=== PATIENT | female | born 1995 | race Caucasian/White ===

== ENCOUNTER 2017-01-12 01:19 | Emergency (ER) | payer BC ==
[~2017-01-12] VITALS: Ht 162.6 cm; Wt 113.6 kg
[~2017-01-12 01:19] MED LIST: CYCL10TA9 PO; DOXY100T2 PO; HYOS0.1281 PO; METR500T PO; OMEP20TA7 PO; ONDA8TAB13 PO; PROM25SU44 RC; TRAM50TA2 PO
[2017-01-12] MEDS ORDERED: NAPR500T3 PO (01:35)
[2017-01-12] MEDS ORDERED: ALBU2.5V4 IH (01:35)
[2017-01-12] MEDS ORDERED: LACTATED RINGERS 1,000 ML IV ONE (01:37)
[2017-01-12] MEDS ORDERED: ONDANSETRON 4 MG/2 ML (SDV) Z0FRAN IVP ONE (01:45)
[2017-01-12 02:03] LABS: BASOPHILS % (AUTO) 0 % (0-10); EOSINOPHILS # (AUTO) 0.2 10^3/uL (0.0-0.3); EOSINOPHILS % (AUTO) 1 % (0-10); LYMPHOCYTES # (AUTO) 1.7 X 10^3 (1.0-4.0); LYMPHOCYTES % (AUTO) 10 % (12-44); MEAN CORPUSCULAR HEMOGLOBIN 28 PG (25-34); MEAN CORPUSCULAR HGB CONC 34 G/DL (32-36); MEAN CORPUSCULAR VOLUME 83 FL (80-99); MEAN PLATELET VOLUME 9.2 FL (7.4-10.4); MONOCYTES % (AUTO) 6 % (0-12); NEUTROPHILS # (AUTO) 14.5 X 10^3 (1.8-7.8); NEUTROPHILS % (AUTO) 83 % (42-75); PLATELET COUNT 365 10^3/uL (130-400); RED BLOOD COUNT 5.05 10^6/uL (4.35-5.85); RED CELL DISTRIBUTION WIDTH 13.9 % (10.0-14.5); WHITE BLOOD COUNT 17.5 10^3/uL (4.3-11.0)
[2017-01-12 02:10] LABS: ALANINE AMINOTRANSFERASE 33 U/L (0-55); ALBUMIN 4.1 G/DL (3.2-4.5); AMYLASE 43 U/L (25-125); ANION GAP 13 MMOL/L (5-14); ASPARTATE AMINO TRANSFERASE 20 U/L (5-34); BILIRUBIN,TOTAL 0.4 MG/DL (0.1-1.0); BLOOD UREA NITROGEN 12 MG/DL (7-18); BUN/CREATININE RATIO 14; CALCIUM 9.1 MG/DL (8.5-10.1); CARBON DIOXIDE 21 MMOL/L (21-32); CHLORIDE 106 MMOL/L (98-107); CREATININE SERUM 0.83 MG/DL (0.60-1.30); GFR ESTIMATED > 60; GLUCOSE 129 MG/DL (70-105); LIPASE 17 U/L (8-78); POTASSIUM 4.3 MMOL/L (3.6-5.0); SODIUM 140 MMOL/L (135-145)
[2017-01-12 02:27] LABS: BAND NEUTROPHILS 5 %; BASOPHILS % (MANUAL) 0 %; EOSINOPHILS % (MANUAL) 1 %; LYMPHOCYTES % (MANUAL) 19 %; NEUTROPHILS % (MANUAL) 72 %
[2017-01-12] MEDS ORDERED: NS 100 ML (IVPB) BAG IV ONE (03:15)
[2017-01-12] MEDS ORDERED: IOHEXOL 350 MG/ML 100 ML (OMNIPAQUE 350) VIAL IV ONE (03:15)
[2017-01-12 03:40] LABS: BILIRUBIN,URINE NEGATIVE (NEGATIVE); KETONES,URINE NEGATIVE (NEGATIVE); LEUKOCYTE ESTERASE ,URINE NEGATIVE (NEGATIVE); NITRITE,URINE NEGATIVE (NEGATIVE); PH,URINE 8 (5-9); PROTEIN,URINE NEGATIVE (NEGATIVE); UROBILINOGEN,URINE NORMAL (NORMAL)
--- NOTE | 2017-01-12 04:02 | ED GI ---
General Chief Complaint: Abdominal/GI Problems Stated Complaint: VOMITING,ABD PAIN Nursing Triage Note: Pt c/o LUQ abd pain and nausea/vomiting since 2199. Sepsis Screen: No Definite Risk Source of Information: Patient History of Present Illness Time Seen By Provider: 01:30 Initial Comments PT ARRIVES VIA POV FROM HOME C/O NAUSEA AND VOMITING AND LUQ PAIN SINCE 2199 TONIGHT--WENT TO BED AT 2100 AND WAS SLIGHTLY NAUSEATED, THEN WOKE UP AT 2200 WITH THESE SYMPTOMS HAS VOMITED X 5-6 TIMES--CONTINUES TO REPEATEDLY DRINK WATER AND STATES SHE CAN' T KEEP IT DOWN NO DIARRHEA--HAD NORMAL BM TODAY NO FEVER NO URINARY SYMPTOMS C/O SORE THROAT--HAS BEEN EXPOSED TO STREP THROAT LMP 03/2016--HAD MIRENA IUD PLACED AT THAT TIME. PT HAS HAD 7 VISITS SINCE 06/2015 FOR SIMILAR PCP: DR. LIZAMA Allergies and Home Medications Allergies Coded Allergies: amoxicillin (Verified Adverse Reaction, Unknown, VOMITING, 07/14/16) Home Medications Albuterol Sulfate 2.5 Mg/3 Ml Vial.neb, Unknown Dose IH UD, (Reported) Naproxen 500 Mg Tablet, 500 MG PO UD, #60 (Reported) Omeprazole 20 Mg Tablet.dr, 20 MG PO DAILY, (Reported) Review of Systems Constitutional: no symptoms reported EENTM: No Symptoms Reported Respiratory: No Symptoms Reported Cardiovascular: No Symptoms Reported Gastrointestinal: See HPI, Abdominal Pain, Denies Constipated, Denies Diarrhea , Nausea, Vomiting Genitourinary: No Symptoms Reported Musculoskeletal: no symptoms reported Skin: no symptoms reported Psychiatric/Neurological: No Symptoms Reported Endocrine: No Symptoms Reported Hematologic/Lymphatic: No Symptoms Reported Past Kqvfgxg-Bnbwld-Hyyyoz Hx Patient Social History Alcohol Use: Occasionally Uses Recreational Drug Use: No Smoking Status: Never a Smoker Recent Foreign Travel: No Contact w/Someone Who Travel: No Recent Infectious Disease Expo: No Recent Hopitalizations: No Immunizations Up To Date Tetanus Booster (TDap): More than 5yrs Seasonal Allergies Seasonal Allergies: No Surgeries HX Surgeries: Yes (BMT'S ) Surgeries: Adenoidectomy, Ear Surgery, Tonsillectomy Respiratory Hx Respiratory Disorders: Yes (ASTHMA) Respiratory Disorders: Asthma Cardiovascular Hx Cardiac Disorders: Yes Cardiac Disorders: Heart Murmur Neurological Hx Neurological Disorders: Yes Neurological Disorders: Headaches /Migraines Reproductive System : No Hx Reproductive Disorders: Yes (IRREGULAR PERIODS) Sexually Transmitted Disease: No Female Reproductive Disorders: Menstrual Problems, Ovarian Cyst 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: 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 Genitourinary Hx Genitourinary Disorders: No Gastrointestinal Hx Gastrointestinal Disorders: No Musculoskeletal Hx Musculoskeletal Disorders: Yes (SCIATICA) Musculoskeletal Disorders: Chronic Back Pain Endocrine Hx Endocrine Disorders: Yes (OBESITY) HEENT HX ENT Disorders: No Cancer Hx Cancer: No Psychosocial Hx Psychiatric Problems: Yes Behavioral Health Disorders: Anxiety, Depression Integumentary HX Skin/Integumentary Disorder: No Blood Transfusions Hx Blood Disorders: No Adverse Reaction to a Blood Tr: No Family Medical History Significant Family History: Other Conditions/Hx Physical Exam Vital Signs VS - Last 72 Hours, by Label 01/12/17 01:29 Temp 96.6 Pulse 106 Resp 20 B/P (MAP) 121/61 Pulse Ox 96 O2 Delivery Room Air Capillary Refill : Less Than 3 Seconds General Appearance: WD/WN, no apparent distress, obese HEENT: PERRL/EOMI Neck: normal inspection Respiratory: normal breath sounds, no respiratory distress, no accessory muscle use Cardiovascular: regular rate, rhythm, no murmur Gastrointestinal: normal bowel sounds, soft, no organomegaly, no pulsatile mass , No distended, No guarding, No rebound, tenderness (EPIGASTRIC AND LUQ ), No hernia, No mass Extremities: normal inspection Back: normal inspection, no CVA tenderness, no vertebral tenderness Neurologic/Psychiatric: mechanical lead II-XII nml as tested, no motor/sensory deficits, alert, oriented x 3 Skin: normal color, warm/dry, No rash Progress/Results/Core Measures Results/Orders Lab Results Laboratory Tests Test 01/12/17 01:44 01/12/17 01:55 01/12/17 03:30 Range/Units White Blood Count 17.5 H 4.3-11.0 10^3/uL Red Blood Count 5.05 4.35-5.85 10^6/uL Hemoglobin 14.0 11.5-16.0 G/DL Hematocrit 42 35-52 % Mean Corpuscular Volume 83 80-99 FL Mean Corpuscular Hemoglobin 28 25-34 PG Mean Corpuscular Hemoglobin Concent 34 32-36 G/DL Red Cell Distribution Width 13.9 10.0-14.5 % Platelet Count 365 130-400 10^3/uL Mean Platelet Volume 9.2 7.4-10.4 FL Neutrophils (%) (Auto) 83 H 42-75 % Lymphocytes (%) (Auto) 10 L 12-44 % Monocytes (%) (Auto) 6 0-12 % Eosinophils (%) (Auto) 1 0-10 % Basophils (%) (Auto) 0 0-10 % Neutrophils # (Auto) 14.5 H 1.8-7.8 X 10^3 Lymphocytes # (Auto) 1.7 1.0-4.0 X 10^3 Monocytes # (Auto) 1.0 0.0-1.0 X 10^3 Eosinophils # (Auto) 0.2 0.0-0.3 10^3/uL Basophils # (Auto) 0.0 0.0-0.1 10^3/uL Neutrophils % (Manual) 72 % Lymphocytes % (Manual) 19 % Monocytes % (Manual) 3 % Eosinophils % (Manual) 1 % Basophils % (Manual) 0 % Band Neutrophils 5 % Blood Morphology Comment NORMAL Sodium Level 140 135-145 MMOL/L Potassium Level 4.3 3.6-5.0 MMOL/L Chloride Level 106 98-107 MMOL/L Carbon Dioxide Level 21 21-32 MMOL/L Anion Gap 13 5-14 MMOL/L Blood Urea Nitrogen 12 7-18 MG/DL Creatinine 0.83 0.60-1.30 MG/DL Estimat Glomerular Filtration Rate > 60 BUN/Creatinine Ratio 14 Glucose Level 129 H 70-105 MG/DL Calcium Level 9.1 8.5-10.1 MG/DL Total Bilirubin 0.4 0.1-1.0 MG/DL Aspartate Amino Transf (AST/SGOT) 20 5-34 U/L Alanine Aminotransferase (ALT/SGPT) 33 0-55 U/L Alkaline Phosphatase 121 40-136 U/L Total Protein 7.0 6.4-8.2 G/DL Albumin 4.1 3.2-4.5 G/DL Amylase Level 43 25-125 U/L Lipase 17 8-78 U/L Serum Test, Qualitative NEGATIVE NEGATIVE Monoscreen NEGATIVE NEGATIVE Group A Streptococcus Screen NEGATIVE NEGATIVE Urine Color YELLOW Urine Clarity CLEAR Urine pH 8 5-9 Urine Specific [place] 1.010 L 1.016-1.022 Urine Protein NEGATIVE NEGATIVE Urine Glucose (UA) NEGATIVE NEGATIVE Urine Ketones NEGATIVE NEGATIVE Urine Nitrite NEGATIVE NEGATIVE Urine Bilirubin NEGATIVE NEGATIVE Urine Urobilinogen NORMAL NORMAL MG/DL Urine Leukocyte Esterase NEGATIVE NEGATIVE Urine RBC (Auto) NEGATIVE NEGATIVE Urine RBC NONE /HPF Urine WBC NONE /HPF Urine Squamous Epithelial Cells 10-25 H /HPF Urine Crystals NONE /LPF Urine Bacteria TRACE /HPF Urine Casts NONE /LPF Urine Mucus NEGATIVE /LPF Urine Culture Indicated NO My Orders Orders - MARY AMARO DO Saline Lock/Iv-Start (01/12/17 01:37) Amylase (01/12/17 01:37) Cbc With Automated Diff (01/12/17 01:37) Comprehensive Metabolic Panel (01/12/17 01:37) Hcg,Qualitative Serum (01/12/17 01:37) Lipase (01/12/17 01:37) Ua Culture If Indicated (01/12/17 01:37) Ondansetron Injection (Zofran Injectio (01/12/17 01:45) Saline Lock/Iv-Start (01/12/17 01:37) Lactated Ringers (Lr 1000 Ml Iv Solution (01/12/17 01:37) Monotest (01/12/17 01:50) Rapid Strep A Screen (01/12/17 01:50) Manual Differential (01/12/17 01:44) Ct Abdomen/Pelvis W (01/12/17 02:30) Acute Abd Series (01/12/17 02:30) Iohexol Injection (Omnipaque 350 Mg/Ml 1 (01/12/17 03:15) Ns (Ivpb) (Sodium Chloride 0.9% Ivpb Bag (01/12/17 03:15) Medications Given in ED Current Medications Medications Dose Ordered Sig/Martín Route Start Time Stop Time Status Last Admin Dose Admin Iohexol 100 ml ONCE ONCE IV 01/12/17 03:15 01/12/17 03:16 DC 01/12/17 03:11 100 ML Lactated Ringer's 1,000 ml @ 0 mls/hr Q0M ONCE IV 01/12/17 01:37 01/12/17 01:38 DC 01/12/17 01:48 999 MLS/HR Ondansetron HCl 8 mg ONCE ONCE IVP 01/12/17 01:45 01/12/17 01:46 DC 01/12/17 01:48 8 MG Sodium Chloride 100 ml ONCE ONCE IV 01/12/17 03:15 01/12/17 03:16 DC 01/12/17 03:11 80 ML Vital Signs/I&O Vital Sign - Last 12Hours 01/12/17 01:29 Temp 96.6 Pulse 106 Resp 20 B/P (MAP) 121/61 Pulse Ox 96 O2 Delivery Room Air Blood Pressure Mean: 81 Progress Note : Progress Note VOIDED IN WAITING ROOM, PRIOR TO CHECKING IN NO VOMITING DURING ER STAY--NAUSEA IMPROVED WITH ZOFRAN HAD DIARRHEA X 1 DURING ER STAY Diagnostic Imaging Comments CT ABDOMEN/ PELVIS--FLUID IN BOWEL, FATTY LIVER. NO ACUTE PROCESS PER [facility] VIA FAX @ 1576 Reviewed: Reviewed by Me Departure Impression Impression: Primary Impression: Gastroenteritis Disposition: HOME, SELF-CARE Condition: Improved Departure-Patient Inst. Referrals: KERVIN LIZAMA MD (PCP/Family) Primary Care Physician Patient Instructions: Viral Gastroenteritis, Adult (DC) Add. Discharge Instructions: CLEAR LIQUIDS--WATER, BROTH, JELLO, GATORADE TOMORROW IF YOU ARE BETTER, ADD BRATS DIET TO CLEAR LIQUIDS--BANANAS, RICE, APPLESAUCE, TOAST, SALTINES ACIDOPHILUS 2 PILLS 4 TIMES A DAY X 1 WEEK FOLLOW UP WITH YOUR DR IN 1-2 DAYS IF NO BETTER All discharge instructions reviewed with patient and/or family. Voiced understanding. Scripts Ondansetron (Zofran Odt) 4 Mg Tab.rapdis 4 MG PO Q4H for Nausea/Vomiting, #10 TAB Prov: MARY AMARO DO 01/12/17 MARY AMARO DO Jan 12, 2017 04:02
[2017-01-12] MEDS ORDERED: ONDA4TAB8 PO (04:06)
[2017-01-12] MEDS ORDERED: RX-ONDANSETRON 4 MG ODT (ZOFRAN) PPK #4 PO STA (04:08)
[2017-01-12 04:33] VITALS: BP 129/60
--- NOTE | 2017-01-12 07:57 | Diagnostic Imaging Report ---
INDICATION: Left upper quadrant pain after eating last evening, history of ovarian cysts. FINDINGS: Upright view of the chest demonstrates lungs to be clear. Heart, mediastinum and pulmonary vascularity are normal. Supine and upright views of the abdomen demonstrate normal bowel gas pattern. No abnormal calcifications are present. Osseous structures appear normal. IUD is in place. IMPRESSION: There are no acute findings. Dictated by: Dictated on workstation # [id number]
--- NOTE | 2017-01-12 08:31 | Diagnostic Imaging Report ---
PROCEDURE: CT abdomen and pelvis with contrast. TECHNIQUE: Multiple contiguous axial images were obtained through the abdomen and pelvis after administration of intravenous contrast. INDICATION: Left upper quadrant pain after eating last evening. History of ovarian cyst. Mirena device. Negative test. Contrast: 100 mL Omnipaque 350 was given intravenously. Comparison study: CT of the abdomen and pelvis from 05/18/2016, and pelvic ultrasound from 08/10/2016. FINDINGS: The lung bases are clear. Fatty infiltration of the liver is again identified. Spleen is again seen to be upper normal in size. The gallbladder, pancreas, adrenal glands, kidneys are normal. There is no ascites, free air, or abnormal adenopathy. There are a few small lymph nodes in the right lower quadrant mesentery, possible mesenteric adenitis. An IUD is in place. Adnexal structures appear unremarkable. There is no ascites, free air, or abnormal adenopathy. Bowel loops are nondistended with fluid in them. No evidence of an obstruction is present. IMPRESSION: 1. There are a few small lymph nodes in the right lower quadrant mesentery, possible mesenteric adenitis. These were not called on the [facility] report. 2. Fatty infiltration of the liver. Spleen remains upper normal in size. 3. Fluid-filled loops of bowel are present, possible diarrhea state. No obstruction or inflammation is seen. The findings were called to the Emergency Room. Dictated by: Dictated on workstation # [id number]
--- OUTSIDE RECORDS SUMMARY | 2017-01-15 05:46 | XMS REPORT | Continuity of Care Document ---
Author Author [facility] Organization [facility] Address Unknown Phone Unavailable Care Team Providers Care All Source Intelligence Technician Name Role Phone Wilfredo Jessica PCP [phone] Source Comments Some departments are not documenting in the electronic medical record. If you do not see the information that you expected, contact Release of Information in the Health Information Management department at [phone] for further assistance in locating additional records.[facility] Active Allergies and Adverse Reactions No Known Allergies Current Medications Prescription Sig. Disp. Refills Start End Date Status Date zolpidem (AMBIEN) 10 mg Take 5 mg by mouth At Active tablet Bedtime as needed for Sleep. montelukast (SINGULAIR) Take 10 mg by mouth Active 10 mg tablet Daily. At bedtime cetirizine (ZYRTEC) 10 mg Take 10 mg by mouth Active tablet Daily. At bedtime metoprolol XL (TOPROL XL) Take 50 mg by mouth Active 25 mg tablet Daily. At bedtime albuterol (VENTOLIN HFA, Inhale 2 Puffs by mouth Active PROAIR HFA) 90 Every 6 Hours as needed mcg/Actuation inhaler for Wheezing. As needed for asthma symptoms norgestrel/ethinyl Take 1 Tab by mouth Active estradiol,+, (CRYSELLE) Daily. 0.3 mg/30 mcg tablet sertraline (ZOLOFT) 100 Take 1 Tab by mouth Daily 30 Tab 0 01/02/20 Active mg tablet With Breakfast. 10 Active Problems Problem Noted Date Mood disorder (HCC) 01/01/2010 Neurologic cardiac syncope 01/01/2010 Obesity 01/01/2010 Hyperlipidemia 01/01/2010 Social History Tobacco Use Types Packs/Day Years Used Date Never Smoker Alcohol Use Drinks/Week oz/Week Comments No Last Filed Vital Signs Vital Sign Reading Time Taken Blood Pressure 108/55 01/01/2010 8:00 AM BLADDER CHANGER Pulse 90 01/01/2010 8:00 AM BLADDER CHANGER Temperature 37 C (98.6 F) 01/01/2010 8:00 AM BLADDER CHANGER Respiratory Rate - - Height 1.626 m (5' 4") 12/29/2009 4:00 PM BLADDER CHANGER Weight 103.874 kg (229 lb) 12/29/2009 4:00 PM BLADDER CHANGER Body Mass Index 39.29 12/29/2009 4:00 PM BLADDER CHANGER Oxygen Saturation 98% 12/30/2009 8:50 AM BLADDER CHANGER Plan of Care Health Maintenance Due Date Last Done Comments Physical (Comprehensive) 02/24/2000 Exam Hpv Vaccines (#1) 02/24/2004 Pertussis Vaccine 02/24/2004 Tetanus Vaccine 2010 Cervical Cancer Screening 2014 Influenza Vaccine 06/23/2017 Results from Last 3 Months Not on file
--- OUTSIDE RECORDS SUMMARY | 2017-01-15 05:46 | XMS REPORT ---
Author Author RADHA ROBERTSON [employer] Address Unknown Phone Unavailable Care Team Providers Care 6Th Grade Teacher Name Role Phone RADHA ROBERTSON CP Unavailable Allergies, Adverse Reactions, Alerts Substance Reaction Event Type N.K.D.A. Info Not Available Non Drug Allergy Problems Problem Type Condition Code Onset Dates Condition Status Problem Asthma J45.909 Active Assessment Abdominal pain, unspecified abdominal location R10.9 Active Problem Migraine without aura and with status migrainosus, not intractable G43.001 Active Problem Mild intermittent asthma without complication J45.20 Active Problem Right sided sciatica M54.31 Active Problem Pain of left foot M79.672 Active Problem Pain in right foot M79.671 Active Problem Sciatica of right side M54.31 Active Problem Gastroesophageal reflux disease without esophagitis K21.9 Active Medications Medication Code System Code Instructions Start Date End Date Status Dosage Albuterol Sulfate HFA [facility] [address]-42 108 (90 Base) MCG/ACT Inhalation every 4 hrs Nov 02, 2015 2 puffs as needed Ciprofloxacin [facility] [address]-40 500 MG Orally every 12 hrs May 10, 2016 May 17, 2016 1 tablet Baclofen [facility] [address]-62 10 mg Orally every 8 hours, PRN March 15, 2016 1 tablet with food or milk Cyclobenzaprine HCl [facility] [address]-69 10 MG Orally Three times a day 1 tablet Omeprazole [facility] [address]-98 20 mg Orally Once a day January 18, 2016 1 capsules Maxalt [facility] [address]-96 5 MG Orally PRN May 08, 2015 1 tablet as needed one time, may repeat in 2 hours for migraine pain Mirena [facility] [address]-27 20 MCG/24HR Intrauterine not defined Naproxen [facility] [address]-32 500 MG Orally every 12 hrs 1 tablet as needed Tramadol-Acetaminophen [facility] [address]-28 37.5-325 MG Orally every 6 hrs 2 tablets as needed Procedures Procedure Coding System Code Date COMPREHEN METABOLIC PANEL CPT-4 27563 May 10, 2016 ASSAY OF LIPASE CPT-4 78989 May 10, 2016 COMPLETE CBC W/AUTO DIFF WBC CPT-4 83799 May 10, 2016 VENIPUNCT, ROUTINE* CPT-4 02770 May 10, 2016 Office Visit, Est Pt., Level 3 CPT-4 58828 May 10, 2016 Vital Signs Date/Time: May 10, 2016 Cardiac Monitoring Heart Rate 82 bpm Weight 285.0 lbs Height 64 in Blood Pressure Diastolic 78 mmHg Blood Pressure Systolic 118 mmHg Results No Known Results Summary Purpose eClinicalWorks Submission
--- OUTSIDE RECORDS SUMMARY | 2017-01-15 05:46 | XMS REPORT ---
Author PATTY Moreno [facility] e[employer] Address Unknown Phone Unavailable Care Team Providers Care Platform Material Handling Supervisor Name Role Phone PATTY VAUGHN CP Unavailable Allergies, Adverse Reactions, Alerts Substance Reaction Event Type Amoxicillin rash/nausea Drug Allergy Problems Problem Type Condition Code Onset Dates Condition Status Assessment Elevated C-reactive protein (CRP) R79.82 Active Assessment Irritable bowel syndrome with constipation K58.1 Active Problem Left sided abdominal pain of unknown cause R10.30 Active Problem Migraine without aura and with status migrainosus, not intractable G43.001 Active Problem Elevated C-reactive protein (CRP) R79.82 Active Problem Gastroesophageal reflux disease without esophagitis K21.9 Active Assessment Left sided abdominal pain of unknown cause R10.30 Active Problem Mild intermittent asthma without complication J45.20 Active Problem Sciatica of right side M54.31 Active Medications Medication Code System Code Instructions Start Date End Date Status Dosage Albuterol Sulfate HFA [facility] [address]-63 108 (90 Base) MCG/ACT Inhalation every 4 hrs Nov 02, 2015 2 puffs as needed Omeprazole [facility] [address]-15 20 mg Orally Once a day January 18, 2016 1 capsules Bentyl [facility] [address]-97 20 mg Orally with meals and at bedtime Sep 05, 2016 1 capsule Mirena [facility] [address]-59 20 MCG/24HR Intrauterine not defined Baclofen [facility] [address]-97 10 mg Orally every 8 hours, PRN March 15, 2016 1 tablet with food or milk Naproxen [facility] [address]-34 500 MG Orally every 12 hrs 1 tablet as needed Maxalt [facility] [address]-30 5 MG Orally PRN May 08, 2015 1 tablet as needed one time, may repeat in 2 hours for migraine pain Procedures Procedure Coding System Code Date Office Visit, Est Pt., Level 4 CPT-4 91921 Sep 05, 2016 Vital Signs Date/Time: Sep 05, 2016 Cardiac Monitoring Heart Rate 90 bpm Weight 299.1 lbs Height 64 in BMI 51.33 Index Blood Pressure Diastolic 70 mmHg Blood Pressure Systolic 122 mmHg Results No Known Results Summary Purpose eClinicalWorks Submission
--- OUTSIDE RECORDS SUMMARY | 2017-01-15 05:47 | XMS REPORT ---
Author Author JOSIE CHAMBERS Organization [employer] Address Unknown Phone Unavailable Care Team Providers Care Pencil Sorter Name Role Phone JOSIE CHAMBERS CP Unavailable Allergies No Known Allergies Problems Problem Type Condition Code Onset Dates Condition Status Problem Asthma J45.909 Active Problem Migraine without aura and with status migrainosus, not intractable G43.001 Active Problem Mild intermittent asthma without complication J45.20 Active Problem Right sided sciatica M54.31 Active Problem Pain of left foot M79.672 Active Problem Pain in right foot M79.671 Active Problem Sciatica of right side M54.31 Active Problem Gastroesophageal reflux disease without esophagitis K21.9 Active Medications No Known Medications Results No Known Results Summary Purpose eClinicalWorks Submission
--- OUTSIDE RECORDS SUMMARY | 2017-01-15 05:47 | XMS REPORT ---
Author Author JOSIE CHAMBERS [facility] [place] e[employer] Address Unknown Phone Unavailable Care Team Providers Care Friend Of The Court Name Role Phone JOSIE CHAMBERS CP Unavailable Allergies, Adverse Reactions, Alerts Substance Reaction Event Type Amoxicillin rash/nausea Drug Allergy Problems Problem Type Condition Code Onset Dates Condition Status Assessment Elevated C-reactive protein (CRP) R79.82 Active Problem Left sided abdominal pain of [...] End Date Status Dosage Albuterol Sulfate HFA [facility] [address]-78 108 (90 Base) MCG/ACT Inhalation every 4 hrs Nov 02, 2015 2 puffs as needed Baclofen [facility] [address]-40 10 mg Orally every 8 hours, PRN March 15, 2016 1 tablet with food or milk Naproxen [facility] [address]-05 500 MG Orally every 12 hrs 1 tablet as needed Maxalt [facility] [address]-87 5 MG Orally PRN May 08, 2015 1 tablet as needed one time, may repeat in 2 hours for migraine pain Omeprazole [facility] [address]-05 20 mg Orally Once a day January 18, 2016 1 capsules Mirena [facility] [address]-91 20 MCG/24HR Intrauterine not defined Procedures Procedure Coding System Code Date Office Visit, Est Pt., Level 5 CPT-4 18674 Aug 31, 2016 VENIPUNCT, ROUTINE* CPT-4 05692 Aug 31, 2016 C-REACTIVE PROTEIN CPT-4 02558 Aug 31, 2016 Vital Signs Date/Time: Aug 31, 2016 Cardiac Monitoring Heart Rate 84 bpm Weight 294.9 lbs Height 64 in BMI 50.61 Index Blood Pressure Diastolic 82 mmHg Blood Pressure Systolic 128 mmHg Results Name Result Date Reference Range Unit Abnormality Flag ROUTINE VENIPUNCTURE Summary Purpose eClinicalWorks Submission
--- OUTSIDE RECORDS SUMMARY | 2017-01-15 05:47 | XMS REPORT | Continuity of Care Document ---
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 07/21/2010 INESSA VALLADARES APRN 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 10/24/2014 LEOBARDO AVENDAÑO APRN R 461.9 SINUSITIS ACUTE 10/24/2014 LEOBARDO AVENDAÑO APRN R 786.2 COUGH 10/24/2014 INESSA VALLADARES APRN A 461.9 SINUSITIS ACUTE 10/24/2014 INESSA VALLADARES APRN A 786.2 COUGH 10/24/2014 INESSA VALLADARES APRN A 461.9 SINUSITIS ACUTE 10/24/2014 INESSA VALLADARES APRN A 786.2 COUGH 11/05/2014 INESSA VALLADARES APRN A V04.89 GARDASIL (HPV) DX 11/05/2014 INESSA VALLADARES APRN A V25.02 CONTRACEPTION - ANY METHOD 11/05/2014 INESSA VALLADARES APRN A V04.89 GARDASIL (HPV) DX 11/05/2014 INESSA VALLADARES APRN A V25.02 CONTRACEPTION - ANY METHOD 01/29/2015 INESSA VALLADARES APRN A V25.01 CONTRACEPTION - ORAL CONTRACEPTION 01/29/2015 INESSA VALLADARES APRN V72.31 VALET SERVICE ATTENDANT EXAM, 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 01/29/2015 INESSA VALLADARES APRN V74.5 STD SCREEN 01/29/2015 INESSA VALLADARES APRN V76.10 BREAST CANCER SCREENING 01/29/2015 JACQUELYNDiana MENJIVAR INESSA A V76.2 CERVICAL CANCER SCREENING (PAP SMEAR) 07/17/2015 JHONNY ALVARADO Ot 787.01 NAUSEA WITH VOMITING 07/17/2015 JHONNY ALVARADO Ot 787.03 VOMITING ALONE 07/17/2015 JHONNY ALVARADO Ot 787.91 DIARRHEA 07/21/2015 JHONNY ALVARADO Ot 787.01 07/21/2015 JHONNY ALVARADO Ot 787.03 07/21/2015 JHONNY ALVARADO Ot 787.91 08/09/2015 ELIOT DILLON APRN Ot R11.2 NAUSEA WITH VOMITING, UNSPECIFIED 05/03/2016 MICHAEL SHIN, SANTOS T Ot N76.0 ACUTE VAGINITIS 05/03/2016 MICHAEL SHIN, SANTOS T Ot N83.20 UNSPECIFIED OVARIAN CYSTS 05/03/2016 MICHAEL SHIN, SANTOS T Ot N76.0 ACUTE VAGINITIS 05/03/2016 MICHAEL SHIN, SANTOS T Ot N83.20 UNSPECIFIED OVARIAN CYSTS 05/05/2016 MICHAEL SHIN, SANTOS T Ot N76.0 ACUTE VAGINITIS 05/05/2016 MICHALE SHIN, SANTOS T Ot N83.20 UNSPECIFIED OVARIAN CYSTS 05/05/2016 JHONNY ALVARADO Ot N76.0 ACUTE VAGINITIS 05/05/2016 JHONNY ALVARADO Ot N83.20 UNSPECIFIED OVARIAN CYSTS 05/05/2016 JHONNY ALVARADO Ot R10.32 LEFT LOWER QUADRANT PAIN 05/05/2016 JHONNY ALVARADO Ot R11.10 VOMITING, UNSPECIFIED 05/05/2016 JHONNY ALVARADO Ot R11.2 NAUSEA WITH VOMITING, UNSPECIFIED 05/18/2016 SONDRA DO, MARY K Ot R10.32 LEFT LOWER QUADRANT PAIN 05/19/2016 SONDRA DO, MARY K Ot R10.32 LEFT LOWER QUADRANT PAIN 05/24/2016 SONDRA , MARY K Ot R10.32 LEFT LOWER QUADRANT PAIN 07/18/2016 PIPER SHIN, CHEL Bradshaw Ot K64.9 UNSPECIFIED HEMORRHOIDS 07/19/2016 PIPER SHIN, CHEL Bradshaw Ot K64.9 UNSPECIFIED HEMORRHOIDS 08/11/2016 MADL, JOSIE Ndiaye CLEANING ATTENDANT Ot R59.0 LOCALIZED ENLARGED LYMPH NODES 08/11/2016 DANIELLEL, JOSIE Ndiaye CLEANING ATTENDANT Ot R79.82 ELEVATED C-REACTIVE PROTEIN (CRP) 08/11/2016 DANIELLELJOSIE CLEANING ATTENDANT Ot Z87.42 PERSONAL HISTORY OF OTH DISEASES OF THE 08/11/2016 MADL, JOSIE Ndiaye CLEANING ATTENDANT Ot R59.0 LOCALIZED ENLARGED LYMPH NODES 08/11/2016 MADL, JOSIE Zelda CLEANING ATTENDANT Ot R79.82 ELEVATED C-REACTIVE PROTEIN (CRP) 08/11/2016 MADLKALA Zelda CLEANING ATTENDANT Ot Z87.42 PERSONAL HISTORY OF OTH DISEASES OF THE 08/24/2016 DANIELLEL, JOSIE Ndiaye CLEANING ATTENDANT Ot R59.0 LOCALIZED ENLARGED LYMPH NODES 08/24/2016 DANIELLEL, JOSIE Zelda CLEANING ATTENDANT Ot R79.82 ELEVATED C-REACTIVE PROTEIN (CRP) 08/24/2016 DANIELLELKALA L CLEANING ATTENDANT Ot Z87.42 PERSONAL HISTORY OF OTH DISEASES OF THE Procedures Code Description [place] [address] TEST, URINE (IN-HOUSE) 11/05/2014 08979 TEST, URINE (IN-HOUSE) 01/29/2015 15723 TRICHOMONAS (IN-HOUSE) 01/29/2015 84973 CULTURE UROGENITAL 01/29/2015 03943 GC/CHLAM PROBE (STATE) 01/29/2015 57833 PAP SMEAR 2014 Q0091 PAP SMEAR OBTAIN SMEAR 01/29/2015 Results Test Result Range Complete blood count (CBC) with automated white blood cell (WBC) differential - 01/12/17 01:44 Blood leukocytes automated count (number/volume) 17.5 10*3/ uL 4.3-11.0 Blood erythrocytes automated count (number/volume) 5.05 10*6 /uL 4.35-5.85 Venous blood hemoglobin measurement (mass/volume) 14.0 g/dL 11.5-16.0 Blood hematocrit (volume fraction) 42 % 35-52 Automated erythrocyte mean corpuscular volume 83 [foz_us] 80-99 Automated erythrocyte mean corpuscular hemoglobin (mass per erythrocyte) 28 pg 25-34 Automated erythrocyte mean corpuscular hemoglobin concentration measurement ( mass/volume) 34 g/dL 32-36 Automated erythrocyte distribution width ratio 13.9 % 10.0-14.5 Automated blood platelet count (count/volume) 365 10*3/uL 130-400 Automated blood platelet mean volume measurement 9.2 [foz_us ] 7.4-10.4 Automated blood neutrophils/100 leukocytes 83 % 42-75 Automated blood lymphocytes/100 leukocytes 10 % 12-44 Blood monocytes/100 leukocytes 6 % 0-12 Automated blood eosinophils/100 leukocytes 1 % 0-10 Automated blood basophils/100 leukocytes 0 % 0-10 Blood neutrophils automated count (number/volume) 14.5 10*3 1.8-7.8 Blood lymphocytes automated count (number/volume) 1.7 10*3 1.0-4.0 Blood monocytes automated count (number/volume) 1.0 10*3 0.0-1.0 Automated eosinophil count 0.2 10*3/uL 0.0-0.3 Automated blood basophil count (count/volume) 0.0 10*3/uL 0.0-0.1 Serum or plasma choriogonadotropin ( test) detection - 01/12/17 01:44 Serum or plasma choriogonadotropin ( test) detection NEGATIVE NEGATIVE Comprehensive metabolic panel - 01/12/17 01:44 Serum or plasma sodium measurement (moles/volume) 140 mmol/ L 135-145 Serum or plasma potassium measurement (moles/volume) 4.3 mmol/L 3.6-5.0 Serum or plasma chloride measurement (moles/volume) 106 mmol /L 98-107 Carbon dioxide 21 mmol/L 21-32 Serum or plasma anion gap determination (moles/volume) 13 mmol/L 5-14 Serum or plasma urea nitrogen measurement (mass/volume) 12 mg/dL 7-18 Serum or plasma creatinine measurement (mass/volume) 0.83 mg /dL 0.60-1.30 Serum or plasma urea nitrogen/creatinine mass ratio 14 NRG Serum or plasma creatinine measurement with calculation of estimated glomerular filtration rate > NRG Serum or plasma glucose measurement (mass/volume) 129 mg/dL 70-105 Serum or plasma calcium measurement (mass/volume) 9.1 mg/dL 8.5-10.1 Serum or plasma total bilirubin measurement (mass/volume) 0.4 mg/dL 0.1-1.0 Serum or plasma alkaline phosphatase measurement (enzymatic activity/volume) 121 U/L 40-136 Serum or plasma aspartate aminotransferase measurement (enzymatic activity/ volume) 20 U/L 5-34 Serum or plasma alanine aminotransferase measurement (enzymatic activity/volume ) 33 U/L 0-55 Serum or plasma protein measurement (mass/volume) 7.0 g/dL 6.4-8.2 Serum or plasma albumin measurement (mass/volume) 4.1 g/dL 3.2-4.5 Serum or plasma amylase measurement (enzymatic activity/volume) - 01/12/17 01: 44 Serum or plasma amylase measurement (enzymatic activity/volume) 43 U/L 25-125 Lipase - 01/12/17 01:44 Lipase 17 U/L 8-78 Serum heterophile antibody titer - 01/12/17 01:44 Serum heterophile antibody titer NEGATIVE NEGATIVE Blood manual differential performed detection - 01/12/17 01:44 Blood monocytes/100 leukocytes 3 % NRG Manual blood segmented neutrophils/100 leukocytes 72 % NRG Blood band neutrophils/100 leukocytes 5 % NRG Manual blood lymphocytes/100 leukocytes 19 % NRG Manual eosinophils/100 leukocytes in nose 1 % NRG Manual blood basophils/100 leukocytes 0 % NRG Blood erythrocyte morphology finding identification NORMAL NRG Streptococcus pyogenes antigen detection - 01/12/17 01:55 Streptococcus pyogenes antigen detection NEGATIVE NEGATIVE Bacterial throat culture - 01/12/17 01:55 Bacterial throat culture NBS NRG Complete urinalysis with reflex to culture - 01/12/17 03:30 Urine color determination YELLOW NRG Urine clarity determination CLEAR NRG Urine pH measurement by test strip 8 5- 9 Specific gravity of urine by test strip 1.010 1.016-1.022 Urine protein assay by test strip, semi-quantitative NEGATIVE NEGATIVE Urine glucose detection by automated test strip NEGATIVE NEGATIVE Erythrocytes detection in urine sediment by light microscopy NEGATIVE NEGATIVE Urine ketones detection by automated test strip NEGATIVE NEGATIVE Urine nitrite detection by test strip NEGATIVE NEGATIVE Urine total bilirubin detection by test strip NEGATIVE NEGATIVE Urine urobilinogen measurement by automated test strip (mass/volume) NORMAL NORMAL Urine leukocyte esterase detection by dipstick NEGATIVE NEGATIVE Automated urine sediment erythrocyte count by microscopy (number/high power field) NONE NRG Automated urine sediment leukocyte count by microscopy (number/high power field ) NONE NRG Bacteria detection in urine sediment by light microscopy TRACE NRG Squamous epithelial cells detection in urine sediment by light microscopy 10-25 NRG Crystals detection in urine sediment by light microscopy NONE NRG Casts detection in urine sediment by light microscopy NONE NRG Mucus detection in urine sediment by light microscopy NEGATIVE NRG Complete urinalysis with reflex to culture NO NRG Encounters ACCT No. Visit Date/Time Discharge Status Pt. Type Provider Facility Loc./Unit Complaint [id number] 01/29/2015 15:53:00 01/29/2015 23: 59:59 [facility] Outpatient INESSA VALLADARES APRN [id number] 11/05/2014 15:44:00 11/05/2014 23: 59:59 [facility] Outpatient INESSA VALLADARES APRN [id number] 10/24/2014 08:52:00 10/24/2014 23: 59:59 [facility] Outpatient LEOBARDO AVENDAÑO APRN
--- OUTSIDE RECORDS SUMMARY | 2017-01-15 05:47 | XMS REPORT ---
Author STONE Webb [facility] eClinicalWorks Address Unknown Phone Unavailable Care Team Providers Care Retail Account Executive Name Role Phone STONE CEDEÑO Unavailable Allergies No Known Allergies Problems Problem Type Condition Code Onset Dates Condition Status Assessment Asthma J45.909 Active Problem Migraine 346.90 Active Problem Back pain with right-sided sciatica 724.3 Active Problem Asthma J45.909 Active Problem GARDASIL (HPV) DX V04.89 Active Problem General counseling for initiation of other contraceptive measures V25.02 Active Problem Cough 786.2 Active Problem Acute sinusitis, unspecified 461.9 Active Medications Medication Code System Code Instructions Start Date End Date Status Dosage Albuterol Sulfate A [facility] [address]-08 108 (90 Base) MCG/ACT Inhalation every 4 hrs Nov 02, 2015 2 puffs as needed Results No Known Results Summary Purpose eClinicalWorks Submission
--- OUTSIDE RECORDS SUMMARY | 2017-01-15 05:47 | XMS REPORT ---
Author Author JOSIE CHAMBERS [facility] eClinicalWorks Address Unknown Phone Unavailable Care Team Providers Care Lumber Checker Name Role Phone JOSIE CHAMBERS CP Unavailable Allergies, Adverse Reactions, Alerts Substance Reaction Event Type N.K.D.A. Info Not Available Non Drug Allergy Problems Problem Type Condition Code Onset Dates Condition Status Problem Asthma J45.909 Active Assessment Abdominal pain, left lateral R10.9 Active Problem Migraine without aura and [...] Instructions Start Date End Date Status Dosage Omeprazole [facility] [address]-50 20 mg Orally Once a day January 18, 2016 1 capsules Baclofen [facility] [address]-28 10 mg Orally every 8 hours, PRN March 15, 2016 1 tablet with food or milk Albuterol Sulfate HFA [facility] [address]-29 108 (90 Base) MCG/ACT Inhalation every 4 hrs Nov 02, 2015 2 puffs as needed Naproxen [facility] [address]-25 500 MG Orally every 12 hrs 1 tablet as needed Tramadol-Acetaminophen [facility] [address]-55 37.5-325 MG Orally every 6 hrs 2 tablets as needed Cyclobenzaprine HCl [facility] [address]-31 10 MG Orally Three times a day 1 tablet Maxalt [facility] [address]-10 5 MG Orally PRN May 08, 2015 1 tablet as needed one time, may repeat in 2 hours for migraine pain Mirena [facility] [address]-63 20 MCG/24HR Intrauterine not defined Procedures Procedure Coding System Code Date Office Visit, Est Pt., Level 4 CPT-4 45804 May 18, 2016 URINALYSIS, AUTO, W/O SCOPE CPT-4 12961 May 18, 2016 Vital Signs Date/Time: May 18, 2016 Cardiac Monitoring Heart Rate 80 bpm Weight 282.3 lbs Height 64 in BMI 48.45 Index Blood Pressure Diastolic 83 mmHg Blood Pressure Systolic 127 mmHg Results No Known Results Summary Purpose eClinicalWorks Submission
--- OUTSIDE RECORDS SUMMARY | 2017-01-15 05:47 | XMS REPORT ---
Author Author JOSIE CHAMBERS [facility] eClinicalWorks Address Unknown Phone Unavailable Care Team Providers Care Certified Medical Coder Name Role Phone JOSIE CHAMBERS CP Unavailable Allergies, Adverse Reactions, Alerts Substance Reaction Event Type Amoxicillin rash/nausea Drug Allergy Problems Problem Type Condition Code Onset Dates Condition Status Assessment Elevated C-reactive protein (CRP) R79.82 Active Problem Asthma J45.909 Active Problem Rectal bleeding K62.5 Active Assessment History of PID Z87.42 Active Assessment Mesenteric lymphadenopathy R59.0 Active Problem Migraine without aura and with [...] Instructions Start Date End Date Status Dosage Baclofen [facility] [address]-84 10 mg Orally every 8 hours, PRN March 15, 2016 1 tablet with food or milk Naproxen [facility] [address]-71 500 MG Orally every 12 hrs 1 tablet as needed Maxalt [facility] [address]-66 5 MG Orally PRN May 08, 2015 1 tablet as needed one time, may repeat in 2 hours for migraine pain Mirena [facility] [address]-06 20 MCG/24HR Intrauterine not defined Tramadol-Acetaminophen [facility] [address]-04 37.5-325 MG Orally every 6 hrs 2 tablets as needed Omeprazole [facility] [address]-82 20 mg Orally Once a day January 18, 2016 1 capsules Albuterol Sulfate HFA [facility] [address]-45 108 (90 Base) MCG/ACT Inhalation every 4 hrs Nov 02, 2015 2 puffs as needed Procedures Procedure Coding System Code Date CULTURE, BACTERIA, OTHER CPT-4 97365 Aug 03, 2016 TRICHOMONAS ASSAY W/OPTIC CPT-4 36299 Aug 03, 2016 No Charge CPT-4 65131 Aug 03, 2016 Office Visit, Est Pt., Level 4 CPT-4 23351 Aug 03, 2016 Vital Signs Date/Time: Aug 03, 2016 Cardiac Monitoring Heart Rate 88 bpm Weight 290.1 lbs Height 64 in BMI 49.79 Index Blood Pressure Diastolic 78 mmHg Blood Pressure Systolic 122 mmHg Results No Known Results Summary Purpose eClinicalWorks Submission
--- OUTSIDE RECORDS SUMMARY | 2017-01-15 05:47 | XMS REPORT ---
Author Author JOSIE CHAMBERS Organization eClinicalWorks Address Unknown Phone Unavailable Care Team Providers Care Turf Farmer Name Role Phone JOSIE CHAMBERS CP Unavailable Allergies No Known Allergies Problems Problem Type Condition Code Onset Dates Condition Status Problem Left sided abdominal pain of unknown cause R10.30 Active Problem Migraine without aura and with status migrainosus, not intractable G43.001 Active Problem Elevated C-reactive protein (CRP) R79.82 Active Problem Gastroesophageal reflux disease without esophagitis K21.9 Active Assessment Elevated C-reactive protein (CRP) R79.82 Active Problem Mild intermittent asthma without complication J45.20 Active Problem Sciatica of right side M54.31 Active Medications No Known Medications Results No Known Results Summary Purpose eClinicalWorks Submission
--- OUTSIDE RECORDS SUMMARY | 2017-01-15 05:47 | XMS REPORT ---
Author Author JOSIE CHAMBERS [facility] eClinicalWorks Address Unknown Phone Unavailable Care Team Providers Care Program Coordinator Executive Education Name Role Phone JOSIE CHAMBERS Unavailable Allergies, Adverse Reactions, Alerts Substance Reaction Event Type N.K.D.A. Info Not Available Non Drug Allergy Problems Problem Type Condition Code Onset Dates Condition Status Assessment Abdominal pain, left lateral R10.9 Active Problem Asthma J45.909 Active Assessment Mesenteric lymphadenopathy R59.0 Active Problem [...] Instructions Start Date End Date Status Dosage Mirena [facility] [address]-09 20 MCG/24HR Intrauterine not defined Tramadol-Acetaminophen [facility] [address]-58 37.5-325 MG Orally every 6 hrs 2 tablets as needed Albuterol Sulfate HFA [facility] [address]-21 108 (90 Base) MCG/ACT Inhalation every 4 hrs Nov 02, 2015 2 puffs as needed Naproxen [facility] [address]-65 500 MG Orally every 12 hrs 1 tablet as needed Baclofen [facility] [address]-38 10 mg Orally every 8 hours, PRN March 15, 2016 1 tablet with food or milk Maxalt [facility] [address]-19 5 MG Orally PRN May 08, 2015 1 tablet as needed one time, may repeat in 2 hours for migraine pain Omeprazole [facility] [address]-27 20 mg Orally Once a day January 18, 2016 1 capsules Procedures Procedure Coding System Code Date RHEUMATOID FACTOR, QUANT CPT-4 86359 Jun 02, 2016 RBC SED RATE, AUTOMATED CPT-4 12201 Jun 02, 2016 ANTINUCLEAR ANTIBODIES CPT-4 48371 Jun 02, 2016 VENIPUNCT, ROUTINE* CPT-4 33733 Jun 02, 2016 COMPREHEN METABOLIC PANEL CPT-4 04304 Jun 02, 2016 C-REACTIVE PROTEIN CPT-4 41957 Jun 02, 2016 Office Visit, Est Pt., Level 4 CPT-4 31666 Jun 02, 2016 COMPLETE CBC W/AUTO DIFF WBC CPT-4 16013 Jun 02, 2016 Vital Signs Date/Time: Jun 02, 2016 Cardiac Monitoring Heart Rate 78 bpm Weight 284.2 lbs Height 64 in BMI 48.78 Index Blood Pressure Diastolic 78 mmHg Blood Pressure Systolic 112 mmHg Results No Known Results Summary Purpose eClinicalWorks Submission
--- OUTSIDE RECORDS SUMMARY | 2017-01-15 05:47 | XMS REPORT ---
Author Author RADHA ROBERTSON Organization eClinicalWorks Address Unknown Phone Unavailable Care Team Providers Care Broomcorn Seeder Name Role Phone RADHA ROBERTSON CP Unavailable Allergies No Known Allergies Problems [...]
--- OUTSIDE RECORDS SUMMARY | 2017-01-15 05:48 | XMS REPORT ---
Author STONE Webb Organization eClinicalWorks Address Unknown Phone Unavailable Care Team Providers Care Director Occupational Name Role Phone STONE CEDEÑO CP Unavailable Allergies, Adverse Reactions, Alerts Substance [...] End Date Status Dosage Albuterol Sulfate HFA [facility] [address]-73 108 (90 Base) MCG/ACT Inhalation every 4 hrs Nov 02, 2015 2 puffs as needed Naproxen [facility] [address]-94 500 MG Orally every 12 hrs Nov 04, 2015 1 tablet as needed Ortho Evra NDC 0 150-35 mcg/24 hr Nov 05, 2014 1 PATCH by Transdermal route 1 time per week for 3 week(s) Maxalt [facility] [address]-42 5 MG Orally PRN May 08, 2015 1 tablet as needed one time, may repeat in 2 hours for migraine pain Procedures Procedure Coding System Code Date Office Visit, Est Pt., Level 3 CPT-4 64690 Nov 02, 2015 MEASURE BLOOD OXYGEN LEVEL CPT-4 11151 Nov 02, 2015 Vital Signs Date/Time: Nov 02, 2015 Temperature 98.5 F Weight 274 lbs Height 64 in Oximetry 98 % Blood Pressure Diastolic 64 mmHg Blood Pressure Systolic 104 mmHg Cardiac Monitoring Heart Rate 60 bpm BMI 47.03 Index Results No Known Results Summary Purpose eClinicalWorks Submission
--- OUTSIDE RECORDS SUMMARY | 2017-01-15 05:48 | XMS REPORT ---
Author Author JOSIE CHAMBERS Organization eClinicalWorks Address Unknown Phone Unavailable Care Team Providers Care Hatch Tender Name Role Phone JOSIE CHAMBERS CP Unavailable Allergies No Known Allergies Problems Problem Type Condition Code Onset Dates Condition Status Problem Asthma J45.909 Active Problem Rectal bleeding K62.5 Active Problem Migraine without aura and with [...] Instructions Start Date End Date Status Dosage Diflucan [facility] [address]-45 150 MG Orally Once a day Aug 10, 2016 1 tablet Results No Known Results Summary Purpose eClinicalWorks Submission
--- OUTSIDE RECORDS SUMMARY | 2017-01-15 05:48 | XMS REPORT ---
Author Author JOSIE CHAMBERS Organization eClinicalWorks Address Unknown Phone Unavailable Care Team Providers Care Flatbed Press Operator Name Role Phone JOSIE CHAMBERS CP Unavailable [...]
--- OUTSIDE RECORDS SUMMARY | 2017-01-15 05:48 | XMS REPORT ---
Author Author RADHA ROBERTSON Organization eClinicalWorks Address Unknown Phone Unavailable Care Team Providers Care Process Developer Name Role Phone RADHA ROBERTSON CP Unavailable [...]
--- OUTSIDE RECORDS SUMMARY | 2017-01-15 05:48 | XMS REPORT ---
Author Author JOSIE CHAMBERS Organization eClinicalWorks Address Unknown Phone Unavailable Care Team Providers Care Research Agricultural Engineer Name Role Phone JOSIE CHAMBERS CP Unavailable [...]
== END 2017-01-12 04:33 | disposition home or self-care (01) ==
LOC: EDUNIT# 01:19 → ER 01:21
DX: K52.9 Noninfective gastroenteritis and colitis, unspecified (principal); R10.12 Left upper quadrant pain; K76.0 Fatty (change of) liver, not elsewhere classified
CPT/HCPCS: 36415; 74022; 74177; 80053; 81000; 82150; 83690; 84703; 85007; 85027; 86308; 87430; 96361; 96374

== ENCOUNTER → 2017-11-10 | Outpatient (CLI) | payer BC ==
[~2017-11-10] MED LIST changes: +ALBU2.5V4 IH; +NAPR500T4 PO; +ONDA4TAB8 PO
--- NOTE | 2017-11-10 13:02 | Diagnostic Imaging Report ---
INDICATION: Right knee pain x3 weeks. FINDINGS: Three views of the right knee show no fracture, dislocation, or other acute abnormality. There is a small exostosis of the proximal fibula. IMPRESSION: Small proximal fibular exostosis. Right knee is otherwise unremarkable. Dictated by: Dictated on workstation # [id number]
== END ==
LOC: RAD 12:02
PROVIDERS: ATTEND Nurse Practitioner Family
DX: D16.21 Benign neoplasm of long bones of right lower limb (principal)
CPT/HCPCS: 73562

== ENCOUNTER 2019-02-07 15:35 | Emergency (ER) | payer BC ==
[~2019-02-07] VITALS: Ht 162.6 cm; Wt 122.5 kg
[~2019-02-07 15:35] MED LIST changes: +NAPR-915 PO; -NAPR500T4 PO
--- NOTE | 2019-02-07 15:46 | ED Lower Extremity ---
General Chief Complaint: Lower Extremity Stated Complaint: R FOOT PAIN Source: patient Exam Limitations: no limitations History of Present Illness Date Seen by Provider: Feb 07, 2019 Time Seen by Provider: 15:44 Initial Comments ER with right foot pain over the lateral forefoot occurred after she stepped into a hole on Monday02/05/19. Onset: other Severity: moderate Pain/Injury Location: right foot Method of Injury: fell Modifying Factors: Worse With Movement Allergies and Home Medications Allergies Coded Allergies: amoxicillin (Verified Adverse Reaction, Unknown, VOMITING, 07/14/16) Home Medications Albuterol Sulfate 2.5 Mg/3 Ml Vial.neb, Unknown Dose IH UD, (Reported) Naproxen 500 Mg Tablet, 500 MG PO UD, (Reported) Omeprazole 20 Mg Tablet.dr, 20 MG PO DAILY, (Reported) Ondansetron 4 Mg Tab.rapdis, 4 MG PO Q4H Prescribed by: MARY AMARO on 01/12/17 0406 Patient Home Medication List Home Medication List Reviewed: Yes Review of Systems Constitutional: see HPI EENTM: see HPI Respiratory: no symptoms reported Cardiovascular: no symptoms reported Genitourinary: no symptoms reported Musculoskeletal: see HPI Skin: no symptoms reported Psychiatric/Neurological: No Symptoms Reported Past Qowidrf-Cxuuvf-Svlucp Hx Patient Social History Alcohol Use: Occasionally Uses Recreational Drug Use: No Smoking Status: Never a Smoker Recent Foreign Travel: No Contact w/Someone Who Travel: No Recent Hopitalizations: No Immunizations Up To Date Tetanus Booster (TDap): More than 5yrs Seasonal Allergies Seasonal Allergies: No Past Medical History Surgeries: Yes (BMT'S ) Adenoidectomy, Ear Surgery, Tonsillectomy Respiratory: Yes (ASTHMA) Asthma Cardiac: Yes Heart Murmur Neurological: Yes Headaches /Migraines Reproductive Disorders: Yes (IRREGULAR PERIODS) Female Reproductive Disorders: Menstrual Problems, Ovarian Cyst [employer] History: IUD Sexually Transmitted Disease: No Gastrointestinal: No Musculoskeletal: Yes (SCIATICA) Fibromyalgia, Chronic Back Pain Endocrine: Yes (OBESITY) Cancer: No Psychosocial: Yes Anxiety, Depression Integumentary: No Blood Disorders: No Adverse Reaction/Blood Tranf: No Family Medical History Other Conditions/Hx Physical Exam Vital Signs Vital Signs - First Documented 02/07/19 15:38 Temp 98.0 Pulse 77 Resp 18 B/P (MAP) 77/18 (37) O2 Delivery Room Air Capillary Refill : Height, Weight, BMI Height: 5'4.00" Weight: 250lbs. 6.0oz. 113.636104mh; 48.3 BMI Method:Stated General Appearance: WD/WN, no apparent distress Respiratory: no respiratory distress, no accessory muscle use Hips: bilateral hip non-tender, bilateral hip normal inspection, bilateral hip normal range of motion Legs: bilateral leg non-tender, bilateral leg normal inspection, bilateral leg normal range of motion Knees: bilateral knee non-tender, bilateral knee normal inspection, bilateral knee normal range of motion Feet: right foot pain, right foot soft tissue tenderness, right foot swelling, right foot other (over the distal fourth and fifth metatarsals) Neurologic/Psychiatric: alert, normal mood/affect, oriented x 3 Skin: normal color, warm/dry Progress/Results/Core Measures Results/Orders My Orders Orders - ELIOT DILLON APRN Foot, Right, 3 View (02/07/19 15:43) Ankle, Right, 3 Views (02/07/19 16:09) Vital Signs/I&O 02/07/19 15:38 Temp 98.0 Pulse 77 Resp 18 B/P (MAP) 77/18 (37) O2 Delivery Room Air Departure Impression Primary Impression: Sprain and strain of foot Disposition: 01 HOME, SELF-CARE Condition: Stable Departure-Patient Inst. Decision time for Depature: 16:23 Referrals: KERVIN LIZAMA MD (PCP/Family) Primary Care Physician Patient Instructions: Foot Sprain (DC) Add. Discharge Instructions: 1. Continue using crutches as needed 2. Follow-up with your doctor later this week 3. Return to ER for any concerns All discharge instructions reviewed with patient and/or family. Voiced understanding. Work/School Note: Work Release Form Date Seen in the Emergency Department: Feb 07, 2019 Return to Work: Feb 08, 2019 Other Restrictions Listed Below: Crutches as needed for pain when walking until 02/11/19 ELIOT DILLON APRN Feb 07, 2019 15:46
[2019-02-07] MEDS ORDERED: FLUO40CA (15:52)
[2019-02-07] MEDS ORDERED: PREG75CA PO (15:52)
--- NOTE | 2019-02-07 16:29 | Diagnostic Imaging Report ---
INDICATION: Post injury. EXAMINATION: AP, oblique and lateral views of the right ankle were obtained. FINDINGS: No fracture or acute bony abnormality is seen. IMPRESSION: Negative right ankle. Dictated by: Dictated on workstation # [id number]
--- NOTE | 2019-02-07 16:35 | Diagnostic Imaging Report ---
INDICATION: Right foot pain. EXAMINATION: AP, oblique and lateral views of the right foot were obtained. FINDINGS: No fracture or acute bony abnormality is seen. IMPRESSION: Negative right foot. Dictated by: Dictated on workstation # [id number]
[2019-02-07 16:39] VITALS: BP 77/18
== END 2019-02-07 16:39 | disposition home or self-care (01) ==
LOC: EDUNIT# 15:35 → ER 15:36
DX: S96.911A Strain of unspecified muscle and tendon at ankle and foot level, right foot, initial encounter (principal); E66.9 Obesity, unspecified; F41.9 Anxiety disorder, unspecified; F32.9 Major depressive disorder, single episode, unspecified; J45.909 Unspecified asthma, uncomplicated; G43.909 Migraine, unspecified, not intractable, without status migrainosus; Z87.448 Personal history of other diseases of urinary system; Z97.5 Presence of (intrauterine) contraceptive device; Z88.0 Allergy status to penicillin; Z90.49 Acquired absence of other specified parts of digestive tract; Z90.89 Acquired absence of other organs; W18.42XA Slipping, tripping and stumbling without falling due to stepping into hole or opening, initial encounter
CPT/HCPCS: 73610; 73630